=== PATIENT | male | born 1965 | race Caucasian/White ===

== ENCOUNTER 2018-08-20 14:02 | Emergency (ER) | payer OTHER ==
[2018-08-20 14:17] VITALS: BP 122/83; PULSE 88; TEMP 98.5; BMI 28.2
--- NOTE | 2018-08-20 14:19 | PDOC ---
Rapid Medical Evaluation Chief Complaint: Pain, Acute Time Seen by Provider: 08/20/18 14:14 Medical Evaluation: Allergies Allergy/AdvReac Type Severity Reaction Status Date / Time ciprofloxacin [From Cipro] Allergy Verified 08/20/18 14:13 ciprofloxacin HCl Allergy Verified 08/20/18 14:13 [From Cipro] Penicillins Allergy Verified 08/20/18 14:13 08/20/18 14:15 I have performed a brief in-person evaluation of this patient. The patient presents with a chief complaint of: pain and worsen swelling to left Pertinent physical exam findings: Swollen / painful, I have ordered the following: US left leg The patient will proceed to the ED for further evaluation. Discharge Disposition - Diagnosis Leg pain - Referrals - Patient Instructions - Post Discharge Activity
[2018-08-20] MEDS ORDERED: BACITRACIN 15 GM TUBE TOPICAL OINTMENT ONE (14:46)
--- NOTE | 2018-08-20 15:57 | PDOC ---
History of Present Illness - General Chief Complaint: Pain, Acute Stated Complaint: LT KNEE PAIN Time Seen by Provider: 08/20/18 14:14 History Source: Patient (left knee pain and swelling X 2 days) - History of Present Illness Associated Symptoms: denies: fever/chills Past History - Travel Traveled outside of the country in the last 30 days: No Close contact w/someone who was outside of country & ill: No - Past Medical History Allergies/Adverse Reactions: Allergies Allergy/AdvReac Type Severity Reaction Status Date / Time ciprofloxacin [From Cipro] Allergy Verified 08/20/18 14:13 ciprofloxacin HCl Allergy Verified 08/20/18 14:13 [From Cipro] Penicillins Allergy Verified 08/20/18 14:13 Home Medications: Ambulatory Orders Ergocalciferol (Vitamin D2) [Vitamin D2] 50,000 unit PO DAILY 07/21/14 Multivitamins [Tab-A-Vit -] 1 tab PO DAILY 07/21/14 Non-Formulary 0 mg .ROUTE ASDIR 07/22/14 Anemia: Yes (IRON DEFICIENCY) CVA: No COPD: Yes CHF: No GI Disorders: Yes (GERD; ULCERS) Disorders: No HTN: No Hypercholesterolemia: No Seizures: No Thyroid Disease: No - Surgical History Abdominal Surgery: No Appendectomy: No Cholecystectomy: No Lung Surgery: No Orthopedic Surgery: Yes (FOOT SURGERY; RIGHT KNEE ARTHROSCOPY) - Suicide/Smoking/Psychosocial Hx Smoking Status: No Smoking History: Unknown if ever smoked Have you smoked in the past 12 months: No Number of Cigarettes Smoked Daily: 0 Information on smoking cessation initiated: No Hx Alcohol Use: No Drug/Substance Use Hx: No Substance Use Type: None Hx Substance Use Treatment: No Review of Systems - Review of Systems Constitutional: No: Chills, Fever Respiratory: No: Shortness of Breath Cardiac (ROS): No: Chest Pain Musculoskeletal: Yes: Joint Pain, Joint Swelling (left knee). 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, Fully Oriented, Alert, Normal Mood/ Affect, Normal Response, Motor Strength 07/05 Medical Decision Making - Medical Decision Making 08/20/18 15:53 L knee swelling X 2 days s/p laparoscopic meniscus tear repair 3wks ago by orthopedic in [place] pt was seen last Friday for knee effusion which was drained he reports he was on his feet alot during the last 2 days, 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), he was on his feet alot he has not started PT yet knee become swollen and pain radiated down to leg his surgeon referred him to ER to r/o DVT he has an appt tomorrow Duplex neg for DVT *DC/Admit/Observation/Transfer Diagnosis at time of Disposition: Leg pain Qualifiers: Laterality: left Qualified Code(s): M79.605 - Pain in left leg - Discharge Dispostion Disposition: HOME Condition at time of disposition: Stable - Referrals Referrals: Mackenzie Cortes MD [Primary Care Provider] - - Patient Instructions Additional Instructions: Your duplex sonogram was negative for a blood clot please keep leg elevated take Motrin for pain as previously recommended follow up with your Surgeon tomorrow as scheduled Return to the ER if worsening symptoms occurs - Post Discharge Activity
== END 2018-08-20 16:01 | disposition home or self-care (01) ==
LOC: JERFT 14:02
DX: M25.562 Pain in left knee (principal); Z98.890 Other specified postprocedural states; D50.9 Iron deficiency anemia, unspecified; K21.9 Gastro-esophageal reflux disease without esophagitis; J44.9 Chronic obstructive pulmonary disease, unspecified; Z88.0 Allergy status to penicillin; Z88.1 Allergy status to other antibiotic agents
CPT/HCPCS: 93971-TC; 99281-25

== ENCOUNTER 2021-04-09 04:22 | Day surgery (SDC) | payer OTHER ==
[2021-04-05 11:29] VITALS: BMI 28.1
[2021-04-09] MEDS ORDERED: PROPOFOL 20 ML ONE (12:13)
[2021-04-09] MEDS ORDERED: MIDAZOLAM HCL 2 MG/2 ML SINGLE DOSE VIAL ONE (12:13)
[2021-04-09] MEDS ORDERED: GENTAMICIN SO4 80 MG/2 ML VIAL ONE (12:15)
[2021-04-09] MEDS ORDERED: GENTAMICIN SO4 80 MG/2 ML VIAL IVPB ONE (12:25)
[2021-04-09 14:38] VITALS: BP 120/70; PULSE 70; TEMP 97.6
== END 2021-04-09 14:50 | disposition home or self-care (01) ==
LOC: JASU-SURG 04:22
PROVIDERS: ATTEND Urology
PROC: 0TF3XZZ Fragmentation in Right Kidney Pelvis, External Approach (ICD-10-PCS; principal; 2021-04-09 12:00)
DX: N20.0 Calculus of kidney (principal)

== ENCOUNTER 2023-12-24 14:22 | Emergency (ER) | payer OTHER ==
[2023-12-24 14:34] VITALS: BP 127/95; PULSE 82; RESP 16; TEMP 98.6; BMI 25.8
[2023-12-24] MEDS ORDERED: ACETAMINOPHEN 500 MG TABLET (FP) ONE (14:47)
[2023-12-24] MEDS ORDERED: LIDOCAINE 5% TOPICAL PATCH ONE (14:47)
[2023-12-24] MEDS ORDERED: KETOROLAC TROMETHAMINE 30 MG/1 ML VIAL ONE (14:47)
[2023-12-24] MEDS: LIDOCAINE 5% TOPICAL PATCH TP ONE (14:53)
[2023-12-24] MEDS: KETOROLAC TROMETHAMINE 30 MG/1 ML VIAL IM ONE (14:53)
[2023-12-24] MEDS: ACETAMINOPHEN 500 MG TABLET (FP) PO ONE (14:54)
[2023-12-24 21:59] LABS: HIV INTERPRETATION NEGATIVE (NEGATIVE)
[2023-12-24] MEDS ORDERED: LIDOCAINE PATCH REMOVAL MC SCH (22:00)
== END 2023-12-24 15:22 | disposition home or self-care (01) ==
LOC: FER 14:22
PROC: 3E0133Z Introduction of Anti-inflammatory into Subcutaneous Tissue, Percutaneous Approach (ICD-10-PCS; principal; 2023-12-24)
DX: S39.012A Strain of muscle, fascia and tendon of lower back, initial encounter (principal); X50.1XXA Overexertion from prolonged static or awkward postures, initial encounter
CPT/HCPCS: 36415; 86803; 87389; 99284-25